=== PATIENT | male | born 1960 | race Caucasian/White ===

== ENCOUNTER 2018-07-22 10:54 | Outpatient (CLI) | payer MEDICARE, OTHER | END 2018-07-22 10:55 | disposition home or self-care (01) | LOC: BICCT 10:54 | PROVIDERS: ATTEND Nurse Practitioner Family | DX: M48.062 Spinal stenosis, lumbar region with neurogenic claudication (principal); M51.36 Other intervertebral disc degeneration, lumbar region | CPT/HCPCS: 72131 ==